=== PATIENT | female | born 1995 | race Caucasian/White ===

== ENCOUNTER 2021-08-29 08:20 | Observation (INO) ==
--- NOTE | 2021-08-29 08:37 | Emergency Department Note ---
Impression & Plan Acute appendicitis, Abdominal pain ED Provider Note NAME: LIZA PERSAUD AGE: 25 SEX: F : 1995 ARRIVES VIA: Walk-In INFORMANT: Patient, ED PROVIDER(S): Osei Richardson MD Chief Complaint: Abdominal pain, nausea vomiting HPI: Patient does present with abdominal pain and associated nausea vomiting. Patient states that she began having epigastric discomfort around 130 this morning. Patient states that this was persisted where the patient cannot sleep very well. The patient described it as sharp and occasionally itchy. The patient states that now she has right-sided abdominal pain primarily in the upp er abdomen. The patient also does have some mild right lower discomfort as well. The patient denies any dysuria, hematuria, vaginal bleeding, hematochezia or issues with defecation. Patient denies any chills. The patient did not take anything for symptoms. Patient states at 630 she had an episode of nonbloody nonbilious emesis. Patient did drink 1 alcoholic beverage last night. The patient is a non-smoker. Patient did not take anything for her symptoms prior to arrival. Patient's pain has been constant. Patient denies any recent trauma to the abdomen. Patient is vaccinated for COVID-19. Patient states she is on progesterone only control and does not get menstrual periods. ROS: See HPI for pertinent positives and negatives. A total of 10 systems were reviewed and otherwise negative. Past medical history: See below Surgical history: See below Social history: See below Physical Exam: GENERAL: NAD, [wearing a mask,] non-toxic. EYE EXAM: Normal conjunctiva. PERRL, no anisocoria and EOM's grossly intact w/o pain. NECK: Supple, no nuchal rigidity, no adenopathy, non-tender. No signs of meningismus. LUNGS: Clear to auscultation. Normal chest wall mechanics. HEART: NSR, no MRG. ABDOMEN: Abdomen soft, right upper quadrant and right-sided abdominal pain, negative obturators and psoas, normo-active bowel sounds, no masses, no rebound or guarding. BACK: No CVA TTP. SKIN: No rashes and no bruising. UPPER EXTREMITIES: Upper extremities are grossly normal. LOWER EXTREMITIES: Grossly normal, no edema. NEURO EXAM: A&O x3, cranial nerves II-XII grossly intact, normal speech, moves all 4 extremities on command w/o issue. Differential diagnoses: Appendicitis, ovarian cyst, ovarian torsion, ectopic , TOA, PID, infections, diverticulitis, UTI, obstruction, mesenteric ischemia, aortic pathology, inflammatory bowel disease, renal colic, PUD, pancreatitis, biliary pathology, hernia, volvulus, constipation, as well as other pathologies. Course: Patient was seen and evaluated the bedside. Full history physical exam was performed. Imaging Studies: See Below [Cardiac monitoring: An order was placed for continuous cardiac monitoring. The monitor shows a rate of 82 with sinus rhythm.] MDM: Patient was seen due to concern for upper abdominal pain. Patient did have calcifications in the right hemipelvis. Blood work shows a white count of 14. CT abdomen pelvis was obtained. This does show acute appendicitis. Upon reassessment the patient feels well. The patient was informed of the findings. I did speak with the on-call general surgeon Dr. Wagner and the patient was pending admission and operative treatment today. Past Med/Surg History Medical History No pertinent past medical history Surgical History [place] teeth removed Family History Denies family history of Ovarian cancer Prostate cancer Myocardial infarction Breast cancer Colorectal cancer Social History Smoking Status: Never smoker Second Hand Exposure: No; Hx Alcohol Use: Yes Hx Substance Use: No Preferred Language: Frisian Communication Ability: Effective marital status: Single current occupational status: employed Feels Safe at Home: Yes Childhood Exposure to Second-Hand Smoke: No caffeine: Yes Physical Activity Frequency: 5-6 Times per Week Seatbelt Use: always Sunscreen Use: Yes Allergies Allergies Allergy/AdvReac Type Severity Reaction Status Date / Time seasonal allergies Allergy Congested, Uncoded 08/29/21 09:25 Itchy eyes, Runny nose Home Meds Home Medications Medication Instructions Recorded Confirmed hydroxyzine HCl 25 mg tablet 50 mg PO HS PRN 07/19/19 08/29/21 escitalopram oxalate 10 mg tablet 10 mg PO QAM 12/09/20 08/29/21 (Lexapro) ascorbic acid (vitamin C) 500 mg 500 mg PO HS 08/29/21 08/29/21 tablet norethindrone (contraceptive) 0.35 0.35 mg PO HS 08/29/21 08/29/21 mg tablet (Melina) Results & Data (ED) Vital Signs Vital Signs - 24 hr 08/29/21 08:26 08/29/21 08:57 08/29/21 08:59 Temperature 36.5 C 37.1 C Temperature Source Temporal Artery Scan Oral Pulse Rate 87 81 Pulse Rate [Finger] 81 Pulse Rhythm Regular Regular Pulse Rhythm [Finger] Regular Pulse Strength Normal Pulse Strength [Finger] Normal Respiratory Rate 20 16 16 Respiratory Effort / Characteristics Non-Labored Spontaneous Non-Labored Spontaneous Respiratory Depth Normal Normal Respiratory Pattern Regular Regular Blood Pressure 137/99 Blood Pressure [Right Arm] 124/71 Blood Pressure Mean 111 Blood Pressure Mean [Right Arm] 88 Blood Pressure Position Sitting Blood Pressure Position [Right Arm] Semi-fowlers Pulse Oximetry 99 99 99 Oxygen Delivery Method Room Air Room Air Room Air Oxygen Flow Rate 0 Sepsis Recent Fever Within 48 Hours No Sepsis New/Unexplained Change in Mental Status N/A Sepsis Action Taken by Nursing No Action Required Home Medications Current Medication List: was personally reviewed by me Laboratory Data Attestation: I reviewed the patient's lab results. Result diagrams: 08/29/21 09:10 08/29/21 09:10 Lab Results 08/29/21 08/29/21 08/29/21 Range/Units 09:05 09:05 09:10 WBC 14.52 H (4.8-10.8) K/uL RBC 4.23 (4.2-5.4) M/uL Hgb 12.8 (12.0-16.0) g/dL Hct 37.5 (37-47) % MCV 88.7 (80-100) fL MCH 30.3 (25-34) pg MCHC 34.1 (32-36) g/dL RDW Std Deviation 40.6 (36.4-46.3) fL RDW Coeff of Mary 12.6 (11.5-14.5) % Plt Count 254 (130-400) K/uL MPV 10.1 (7.4-10.4) fL Immature Gran % (Auto) 0.2 % Neut % (Auto) 88.8 % Lymph % (Auto) 5.8 % [place] % (Auto) 4.9 % Eos % (Auto) 0.1 % Baso % (Auto) 0.2 % Neut # (Auto) 12.90 H (1.4-6.5) K/uL Lymph # (Auto) 0.84 L (1.2-3.4) K/uL [place] # (Auto) 0.71 H (0.11-0.59) K/uL Eos # (Auto) 0.01 (0-0.5) K/uL Baso # (Auto) 0.03 (0-0.2) K/uL Immature Gran # (Auto) 0.03 H (0.00-0.02) K/uL Sodium (136-145) mmol/L Potassium (3.5-5.1) mmol/L Chloride (98-107) mmol/L Carbon Dioxide (21-32) mmol/L Anion Gap (3-11) BUN (7-18) mg/dl Creatinine (0.6-1.2) mg/dl Est Cr Clr Drug Dosing ml/min Est GFR ( Amer) ml/min Est GFR (Non-Af Amer) ml/min BUN/Creatinine Ratio (10-20) Glucose (70-99) mg/dl Calcium (8.5-10.1) mg/dl Total Bilirubin (0.2-1) mg/dl AST (15-37) U/L ALT (12-78) U/L Alkaline Phosphatase (45-117) U/L Total Protein (6.4-8.2) gm/dl Albumin (3.4-5.0) gm/dl Globulin (2.5-4.0) gm/dl Albumin/Globulin Ratio (0.9-2) Lipase (73-393) U/L Urine Color Yellow Urine Appearance Clear (Clear) Urine pH 6.0 (4.5-7.5) Ur Specific Christine 1.025 (1.000-1.030) Urine Protein 1+ H (Negative) Urine Glucose (UA) Negative (Negative) Urine Ketones Trace H (Negative) Urine Blood Negative (Negative) Urine Nitrite Negative (Negative) Urine Bilirubin Negative (Negative) Urine Urobilinogen Negative (Negative) Ur Leukocyte Esterase Negative (Negative) Urine WBC (Auto) 1-5 (0-5) /hpf Urine RBC (Auto) 0-4 (0-4) /hpf U Hyaline Cast (Auto) 5-10 H (0-5) /lpf U Epithel Cells (Auto) >30 H (0-5) /lpf Urine Bacteria (Auto) 1+ H (Negative) Urine Test Negative (Negative) COVID-19 Eval Order 08/29/21 08/29/21 Range/Units 09:10 10:50 WBC (4.8-10.8) K/uL RBC (4.2-5.4) M/uL Hgb (12.0-16.0) g/dL Hct (37-47) % MCV (80-100) fL MCH (25-34) pg MCHC (32-36) g/dL RDW Std Deviation (36.4-46.3) fL RDW Coeff of Mary (11.5-14.5) % Plt Count (130-400) K/uL MPV (7.4-10.4) fL Immature Gran % (Auto) % Neut % (Auto) % Lymph % (Auto) % [place] % (Auto) % Eos % (Auto) % Baso % (Auto) % Neut # (Auto) (1.4-6.5) K/uL Lymph # (Auto) (1.2-3.4) K/uL [place] # (Auto) (0.11-0.59) K/uL Eos # (Auto) (0-0.5) K/uL Baso # (Auto) (0-0.2) K/uL Immature Gran # (Auto) (0.00-0.02) K/uL Sodium 138 (136-145) mmol/L Potassium 4.1 (3.5-5.1) mmol/L Chloride 107 (98-107) mmol/L Carbon Dioxide 28 (21-32) mmol/L Anion Gap 3.0 (3-11) BUN 11 (7-18) mg/dl Creatinine 0.81 (0.6-1.2) mg/dl Est Cr Clr Drug Dosing 93.7 ml/min Est GFR ( Amer) 116.2 ml/min Est GFR (Non-Af Amer) 100.2 ml/min BUN/Creatinine Ratio 13.3 (10-20) Glucose 99 (70-99) mg/dl Calcium 9.5 (8.5-10.1) mg/dl Total Bilirubin 0.6 (0.2-1) mg/dl AST 15 (15-37) U/L ALT 21 (12-78) U/L Alkaline Phosphatase 56 (45-117) U/L Total Protein 7.6 (6.4-8.2) gm/dl Albumin 4.1 (3.4-5.0) gm/dl Globulin 3.5 (2.5-4.0) gm/dl Albumin/Globulin Ratio 1.2 (0.9-2) Lipase 163 (73-393) U/L Urine Color Urine Appearance (Clear) Urine pH (4.5-7.5) Ur Specific [place] (1.000-1.030) Urine Protein (Negative) Urine Glucose (UA) (Negative) Urine Ketones (Negative) Urine Blood (Negative) Urine Nitrite (Negative) Urine Bilirubin (Negative) Urine Urobilinogen (Negative) Ur Leukocyte Esterase (Negative) Urine WBC (Auto) (0-5) /hpf Urine RBC (Auto) (0-4) /hpf U Hyaline Cast (Auto) (0-5) /lpf U Epithel Cells (Auto) (0-5) /lpf Urine Bacteria (Auto) (Negative) Urine Test (Negative) COVID-19 Eval Order Covid19 [facility] Administered Medications Discontinued Medications Sodium Chloride (Nss) 500 mls @ 999 mls/hr IV .Q31M STA Stop: 08/29/21 09:22 Last Admin: 08/29/21 09:21 Dose: 999 mls/hr Documented by: [id number] Famotidine (Pepcid 20mg Iv Push) 20 mg in 5 mls @ 2.5 mls/min IV NOW STA Stop: 08/29/21 08:54 Last Admin: 08/29/21 09:25 Dose: 2.5 mls/min Documented by: [id number] Cefoxitin Sodium (Mefoxin) 2,000 mg in 60 mls @ 100 mls/hr IV NOW STA Stop: 08/29/21 11:08 Last Admin: 08/29/21 10:50 Dose: 100 mls/hr Documented by: [id number] Ioversol (Optiray 320 100ml) 94 ml IV ONCE ONE Stop: 08/29/21 10:14 Last Admin: 08/29/21 10:13 Dose: 94 ml Documented by: [id number] Ondansetron HCl (Ondansetron Inj 2 Mg/Ml 2 Ml Vial) 4 mg IV NOW STA Stop: 08/29/21 08:53 Last Admin: 08/29/21 09:23 Dose: 4 mg Documented by: [id number] Imaging Data Radiologist's Impression: KUB X-Ray 08/29/21 08:52 KUB CLINICAL HISTORY: Right-sided abdominal pain. COMPARISON STUDY: None. FINDINGS: The bowel gas pattern is normal. A 3 mm left pelvic calcification likely reflects a phlebolith. Note is made of clustered calcific densities within the right hemipelvis. These measure 5.2 cm in extent. Visualized skeletal structures are unremarkable. IMPRESSION: 1. No evidence for a bowel obstruction. 2. Clustered calcific densities within the right hemipelvis which measure 5.2 cm in extent. Radiographic appearance is nonspecific and these could be related to the right ovary or less likely the uterus. CT is recommended for further evaluation. ACT 112: Negative or not required by law. Electronically signed by: Gary Arndt M.D. 08/29/2021 9:07 AM Abdomen/Pelvis CT 08/29/21 09:[address] WITH IV CONTRAST CT DOSE: 286.60 mGy.cm HISTORY: Right-sided abdominal pain. Vomiting. TECHNIQUE: Multiaxial CT images of the abdomen and pelvis were performed following the use of intravenous contrast. A dose lowering technique was utilized adhering to the principles of ALARA. COMPARISON STUDY: None. FINDINGS: The lung bases are clear. No pneumoperitoneum. No pneumatosis. No fractures within the visualized osseous structures. The liver, gallbladder, spleen, adrenal glands, pancreas, and kidneys are unremarkable. No retroperitoneal lymphadenopathy. Normal caliber abdominal aorta. No pelvic lymphadenopathy. The uterus and ovaries are unremarkable. Normal bladder. No evidence for small bowel obstruction. Densities within the ascending colon may be due to old barium contrast. There is a thick-walled and mildly distended appendix with mild periappendiceal fat stranding. This demonstrates a retrocecal location. Findings are consistent with acute appendicitis. The appendix measures up to [address] IMPRESSION: Acute appendicitis. ACT 112: Negative or not required by law. Electronically signed by: Fortunato Silva M.D. 08/29/2021 10:27 AM Discharge Plan Visit Data Chief Complaint: GI Assessment Stated Complaint: LRQ ABD PAIN,VOMITING,NAUSEA ED Provider: Osei Richardson Discharge Problem: Acute appendicitis, Abdominal pain Patient Disposition: Admitted As Inpatient Forms Stand Alone Forms: [facility] Prescriptions Prescriptions: No Action escitalopram oxalate [Lexapro] 10 mg tablet 10 mg PO QAM RF: 0 hydroxyzine HCl 25 mg tablet 50 mg PO HS PRN (Reason: Sleep) RF: 0 norethindrone (contraceptive) [Melina] 0.35 mg tablet 0.35 mg PO HS RF: 0 ascorbic acid (vitamin C) 500 mg Tablet 500 mg PO HS RF: 0 Referrals Referrals: Александр Newman MD [Primary Care Provider] -
[2021-08-29] MEDS ORDERED: SODIUM CHLORIDE 0.9% 500 ML IV STA (08:52)
[2021-08-29] MEDS ORDERED: ONDANSETRON INJ 2 MG/ML 2 ML VIAL IV STA (08:52)
[2021-08-29] MEDS ORDERED: FAMOTIDINE 20MG IV PUSH 20 MG/5 ML SYR IV STA (08:53)
--- NOTE | 2021-08-29 09:09 | XRay Report ---
KUB CLINICAL HISTORY: Right-sided abdominal pain. COMPARISON STUDY: None. FINDINGS: The bowel gas pattern is normal. A 3 mm left pelvic calcification likely reflects a phlebol ith. Note is made of clustered calcific densities within the right hemipelvis. These measure 5.2 cm i n extent. Visualized skeletal structures are unremarkable. IMPRESSION: 1. No evidence for a bowel obstruction. 2. Clustered calcific densities within the right hemipelvis which measure 5.2 cm in extent. Radiograp hic appearance is nonspecific and these could be related to the right ovary or less likely the uterus . CT is recommended for further evaluation. ACT 112: Negative or not required by law. Electronically signed by: Gary Arndt M.D. 08/29/2021 9:07 AM
[2021-08-29 09:26] LABS: Basophils # (auto) 0.03 K/uL (0-0.2); Basophils % (auto) 0.2 %; Eosinophils # (auto) 0.01 K/uL (0-0.5); Eosinophils % (auto) 0.1 %; Hematocrit (blood only) 37.5 % (37-47); Hemoglobin 12.8 g/dL (12.0-16.0); Immature Granulocytes # (auto) 0.03 K/uL (0.00-0.02); Immature Granulocytes % (auto) 0.2 %; Lymphocytes # (auto) 0.84 K/uL (1.2-3.4); Lymphocytes % (auto) 5.8 %; Mean Corpuscular Hemoglobin 30.3 pg (25-34); Mean Corpuscular Hgb Conc 34.1 g/dL (32-36); Mean Corpuscular Volume 88.7 fL (80-100); Mean Platelet Volume 10.1 fL (7.4-10.4); Monocytes # (auto) 0.71 K/uL (0.11-0.59); Monocytes % (auto) 4.9 %; Neutrophils % (auto) 88.8 %; Platelet Count 254 K/uL (130-400); RDW Coefficient of Variation 12.6 % (11.5-14.5); RDW Standard Deviation 40.6 fL (36.4-46.3); Red Blood Count 4.23 M/uL (4.2-5.4); White Blood Count 14.52 K/uL (4.8-10.8)
[2021-08-29 09:39] LABS: Appearance Urine Clear (Clear); Bacteria Urine Automated 1+ (Negative); Bilirubin Urine Negative (Negative); Blood Urine Negative (Negative); Color Urine Yellow; Epithelial Cell Urine Auto >30 /lpf (0-5); Glucose Urine UA Negative (Negative); Ketones Urine Trace (Negative); Leukocyte Esterase Urine Negative (Negative); Nitrite Urine Negative (Negative); Protein Urine 1+ (Negative); RBC Urine Automated 0-4 /hpf (0-4); Specific Gravity Urine 1.025 (1.000-1.030); Urobilinogen Urine Negative (Negative)
[2021-08-29 09:50] LABS: Pregnancy Test, Urine Negative (Negative)
[2021-08-29 09:53] LABS: Albumin Level 4.1 gm/dl (3.4-5.0); BUN Creatinine Ratio 13.3 (10-20); Calcium 9.5 mg/dl (8.5-10.1); Creatinine Clr Calc Pharmacy 93.7 ml/min; Est GFR (African American) 116.2 ml/min; Est GFR (Non-African American) 100.2 ml/min; Potassium 4.1 mmol/L (3.5-5.1)
[2021-08-29 09:55] LABS: Albumin Globulin Ratio 1.2 (0.9-2); Bilirubin,Total 0.6 mg/dl (0.2-1); Globulin 3.5 gm/dl (2.5-4.0); Total Protein 7.6 gm/dl (6.4-8.2)
[2021-08-29] MEDS ORDERED: OPTIRAY 320 100ml IV ONE (10:13)
--- NOTE | 2021-08-29 10:29 | CT Scan Report ---
ABDOMEN AND PELVIS CT WITH IV CONTRAST CT DOSE: 286.60 mGy.cm HISTORY: Right-sided abdominal pain. Vomiting. TECHNIQUE: Multiaxial CT images of the abdomen and pelvis were performed following the use of intrave nous contrast. A dose lowering technique was utilized adhering to the principles of ALARA. COMPARISON STUDY: None. FINDINGS: The lung bases are clear. No pneumoperitoneum. No pneumatosis. No fractures within the visu alized osseous structures. The liver, gallbladder, spleen, adrenal glands, pancreas, and kidneys are unremarkable. No retroperitoneal lymphadenopathy. Normal caliber abdominal aorta. No pelvic lymphaden opathy. The uterus and ovaries are unremarkable. Normal bladder. No evidence for small bowel obstruct ion. Densities within the ascending colon may be due to old barium contrast. There is a thick-walled and mildly distended appendix with mild periappendiceal fat stranding. This demonstrates a retrocecal location. Findings are consistent with acute appendicitis. The appendix measures up to [address] IMPRESSION: Acute appendicitis. ACT 112: Negative or not required by law. Electronically signed by: Fortunato Silva M.D. 08/29/2021 10:27 AM
[2021-08-29] MEDS ORDERED: cefOXitin 2,000 MG/60 ML BAG IV STA (10:33)
--- NOTE | 2021-08-29 13:12 | History & Physical Report ---
Date of Service August 29, 2021 Assessment & Plan (1) Acute appendicitis: Plan: 25-year-old female with acute uncomplicated appendicitis Plan for laparoscopic appendectomy Risk of the procedure were discussed to include but not limited to bleeding, infection, normal appendix, damage surrounding structures, conversion open, need for future more extensive surgery, and the risk of anesthesia Preop antibiotics Admit observation postop as she lives alone History of Present Illness Chief Complaint: Abdominal pain Primary Care Provider: Александр Newman MD 25-year-old female presents to the emergency department with abdominal pain that woke her from sleep early this morning. Initially periumbilical, now migrated to the right lower quadrant. Had some emesis. No similar episodes in the past. Otherwise healthy, not on any blood thinners, no prior abdominal surgery. 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 Allergies Allergy/AdvReac Type Severity Reaction Status Date / Time seasonal allergies Allergy Congested, Uncoded 08/29/21 09:25 Itchy eyes, Runny nose Home Medications Medication Instructions Recorded Confirmed Type hydroxyzine HCl 25 mg tablet 50 mg PO HS PRN 07/19/19 08/29/21 History escitalopram oxalate 10 mg tablet 10 mg PO QAM 12/09/20 08/29/21 History (Lexapro) ascorbic acid (vitamin C) 500 mg 500 mg PO HS 08/29/21 08/29/21 History tablet norethindrone (contraceptive) 0.35 0.35 mg PO HS 08/29/21 08/29/21 History mg tablet (Melina) Past Med/Surg History Medical History No pertinent past medical history Surgical History [place] teeth removed Family History Denies family history of Ovarian cancer Prostate cancer Myocardial infarction Breast cancer Colorectal cancer Social History Smoking Status: Never smoker Second Hand Exposure: No; Hx Alcohol Use: Yes Hx Substance Use: No Preferred Language: Argentine Communication Ability: Effective marital status: Single current occupational status: employed Feels Safe at Home: Yes Childhood Exposure to Second-Hand Smoke: No caffeine: Yes Physical Activity Frequency: 5-6 Times per Week Seatbelt Use: always Sunscreen Use: Yes Review of Systems Review of Systems: All systems reviewed & are unremarkable except as noted in HPI & below Physical Exam Constitutional: WD/WN, vitals as above Respiratory: normal respiratory effort, lungs clear to auscultation Cardiovascular: RRR, no murmur, no edema Gastrointestinal (Abdomen): Percussion/Palpation: + abdomen tender (Tender palpation right lower quadrant with localized guarding), + guarding and abdomen soft; abdomen not rigid, no hepatosplenomegaly and no hernia Results & Data Results & Data ([facility]) Vital Signs (Past 12 Hours) Vital Signs Temp Pulse Pulse Resp BP BP Pulse Ox 08/29/21 12:13 70 16 115/67 99 08/29/21 08:59 81 16 99 08/29/21 08:57 37.1 C 81 16 124/71 99 08/29/21 08:26 36.5 C 87 20 137/99 99 Laboratory Results Laboratory Results - last 24 hr 08/29/21 08/29/21 08/29/21 09:05 09:05 09:10 WBC 14.52 H RBC 4.23 Hgb 12.8 Hct 37.5 MCV 88.7 MCH 30.3 MCHC 34.1 RDW Std Deviation 40.6 RDW Coeff of Mary 12.6 Plt Count 254 MPV 10.1 Immature Gran % (Auto) 0.2 Neut % (Auto) 88.8 Lymph % (Auto) 5.8 [place] % (Auto) 4.9 Eos % (Auto) 0.1 Baso % (Auto) 0.2 Neut # (Auto) 12.90 H Lymph # (Auto) 0.84 L [place] # (Auto) 0.71 H Eos # (Auto) 0.01 Baso # (Auto) 0.03 Immature Gran # (Auto) 0.03 H Sodium Potassium Chloride Carbon Dioxide Anion Gap BUN Creatinine Est Cr Clr Drug Dosing Est GFR ( Amer) Est GFR (Non-Af Amer) BUN/Creatinine Ratio Glucose Calcium Total Bilirubin AST ALT Alkaline Phosphatase Total Protein Albumin Globulin Albumin/Globulin Ratio Lipase Urine Color Yellow Urine Appearance Clear Urine pH 6.0 Ur Specific [place] 1.025 Urine Protein 1+ H Urine Glucose (UA) Negative Urine Ketones Trace H Urine Blood Negative Urine Nitrite Negative Urine Bilirubin Negative Urine Urobilinogen Negative Ur Leukocyte Esterase Negative Urine WBC (Auto) 1-5 Urine RBC (Auto) 0-4 U Hyaline Cast (Auto) 5-10 H U Epithel Cells (Auto) >30 H Urine Bacteria (Auto) 1+ H Urine Test Negative COVID-19 Eval Order SARS-CoV-2 RNA ([place]) 08/29/21 08/29/21 08/29/21 09:10 10:50 10:50 WBC RBC Hgb Hct MCV MCH MCHC RDW Std Deviation RDW Coeff of Mary Plt Count MPV Immature Gran % (Auto) Neut % (Auto) Lymph % (Auto) [place] % (Auto) Eos % (Auto) Baso % (Auto) Neut # (Auto) Lymph # (Auto) [place] # (Auto) Eos # (Auto) Baso # (Auto) Immature Gran # (Auto) Sodium 138 Potassium 4.1 Chloride 107 Carbon Dioxide 28 Anion Gap 3.0 BUN 11 Creatinine 0.81 Est Cr Clr Drug Dosing 93.7 Est GFR ( Amer) 116.2 Est GFR (Non-Af Amer) 100.2 BUN/Creatinine Ratio 13.3 Glucose 99 Calcium 9.5 Total Bilirubin 0.6 AST 15 ALT 21 Alkaline Phosphatase 56 Total Protein 7.6 Albumin 4.1 Globulin 3.5 Albumin/Globulin Ratio 1.2 Lipase 163 Urine Color Urine Appearance Urine pH Ur Specific [place] Urine Protein Urine Glucose (UA) Urine Ketones Urine Blood Urine Nitrite Urine Bilirubin Urine Urobilinogen Ur Leukocyte Esterase Urine WBC (Auto) Urine RBC (Auto) U Hyaline Cast (Auto) U Epithel Cells (Auto) Urine Bacteria (Auto) Urine Test COVID-19 Eval Order Covid19 [facility] SARS-CoV-2 RNA ([place]) Pending Diagnostic Findings ABDOMEN AND PELVIS CT WITH IV CONTRAST CT DOSE: 286.60 mGy.cm HISTORY: Right-sided abdominal pain. Vomiting. TECHNIQUE: Multiaxial CT images of the abdomen and pelvis were performed following the use of intravenous contrast. A dose lowering technique was utilized adhering to the principles of ALARA. COMPARISON STUDY: None. FINDINGS: The lung bases are clear. No pneumoperitoneum. No pneumatosis. No fractures within the visualized osseous structures. The liver, gallbladder, spleen, adrenal glands, pancreas, and kidneys are unremarkable. No retroperitoneal lymphadenopathy. Normal caliber abdominal aorta. No pelvic lymphadenopathy. The uterus and ovaries are unremarkable. Normal bladder. No evidence for small bowel obstruction. Densities within the ascending colon may be due to old barium contrast. There is a thick-walled and mildly distended appendix with mild periappendiceal fat stranding. This demonstrates a retrocecal location. Findings are consistent with acute appendicitis. The appendix measures up to 8 mm in diameter. IMPRESSION: Acute appendicitis. PG Care Time/CCT Total # of Minutes Spent Total Time Spent with Patient: Total time spent is greater than 50% in coordination of care (as documented) at patient's floor/unit and/or counseling patient: Coding Level of Care Code INT OBSERVATION CARE 50M LVL 2 Diagnoses Acute appendicitis K35.30 Acute appendicitis type: with localized peritonitis Appendicitis abscess presence: without abscess Appendicitis gangrene presence: without gangrene Appendicitis perforation presence: without perforation (1) Acute appendicitis Acute appendicitis type: with localized peritonitis Appendicitis abscess presence: without abscess Appendicitis gangrene presence: without gangrene Appendicitis perforation presence: without perforation Qualified Code(s): K35.30 - Acute appendicitis with localized peritonitis, without perforation or gangrene
--- NOTE | 2021-08-29 13:51 | Anesthesiology Consultation ---
Date of Service August 29, 2021 Assessment & Plan (1) Encounter for pre-operative examination: Chart Review Chart Review: Acceptable Risk for Surgery and Patient NOT seen in Pre Admission Testing Consults Requested none History Surgery Operation Date: 08/29/21 12:00 Proposed Procedures p Laparoscopic Appendectomy - Chuy Wagner DO, FACS Height/Weight Height: 5 ft 8 in Weight: 56.4 kg Allergies Allergy/AdvReac Type Severity Reaction Status Date / Time seasonal allergies Allergy Congested, Uncoded 08/29/21 09:25 Itchy eyes, Runny nose Medications Home Medications Medication Instructions Recorded Confirmed Last Taken hydroxyzine HCl 25 mg tablet 50 mg PO HS PRN 07/19/19 08/29/21 08/28/21 escitalopram oxalate 10 mg tablet 10 mg PO QAM 12/09/20 08/29/21 08/29/21 (Lexapro) ascorbic acid (vitamin C) 500 mg 500 mg PO HS 08/29/21 08/29/21 08/28/21 tablet norethindrone (contraceptive) 0.35 0.35 mg PO HS 08/29/21 08/29/21 08/28/21 mg tablet (Melina) Past Medical History Medical History No pertinent past medical history Past Family History Family History Denies family history of Ovarian cancer Prostate cancer Myocardial infarction Breast cancer Colorectal cancer Past Surgical History Surgical History [place] teeth removed Social History Smoking Status: Never smoker Hx Alcohol Use: Yes Hx Substance Use: No Physical Exam Vital Signs Last Vital Signs Temp 37.1 C 08/29/21 08:57 Pulse 70 08/29/21 12:13 Resp 16 08/29/21 12:13 BP 115/67 08/29/21 12:13 Pulse Ox 99 08/29/21 12:13 Testing Laboratory Results 08/29/21 09:10 08/29/21 09:10 Urine Color Yellow 08/29/21 09:05 Urine Appearance Clear (Clear) 08/29/21 09:05 Urine pH 6.0 (4.5-7.5) 08/29/21 09:05 Ur Specific [place] 1.025 (1.000-1.030) 08/29/21 09:05 Urine Protein 1+ (Negative) H 08/29/21 09:05 Urine Glucose (UA) Negative (Negative) 08/29/21 09:05 Urine Ketones Trace (Negative) H 08/29/21 09:05 Urine Nitrite Negative (Negative) 08/29/21 09:05 Ur Leukocyte Esterase Negative (Negative) 08/29/21 09:05 Urine WBC (Auto) 1-5 /hpf (0-5) 08/29/21 09:05 Urine RBC (Auto) 0-4 /hpf (0-4) 08/29/21 09:05 U Hyaline Cast (Auto) 5-10 /lpf (0-5) H 08/29/21 09:05 U Epithel Cells (Auto) >30 /lpf (0-5) H 08/29/21 09:05 Urine Bacteria (Auto) 1+ (Negative) H 08/29/21 09:05 Urine Test Negative (Negative) 08/29/21 09:05 08/29/21 09:05 Urine Test Negative
[2021-08-29] MEDS ORDERED: BUPIVACAINE 0.5 % 5 MG/1 ML MPF 30ML VIAL ONE (13:59)
[2021-08-29] MEDS ORDERED: fentaNYL citrate 100 MCG/2 ML VIAL ONE (15:05)
[2021-08-29] MEDS ORDERED: MIDAZOLAM HCL 1 MG/ML 2ML VIAL ONE (15:06)
[2021-08-29] MEDS ORDERED: SCOPOLAMINE 1 MG TDSY TD ONE (15:46)
[2021-08-29] MEDS ORDERED: DEXAMETHASONE SOD INJ 4 MG/ML VIAL ONE (16:32)
[2021-08-29] MEDS ORDERED: SUCCINYLCHOLINE CHLORIDE 20 MG/ML 10 ML VIAL IV ONE (16:32)
[2021-08-29] MEDS ORDERED: LIDOCAINE 2% 2 ML VIAL/AMP(20MG/ML) INFIL ONE (16:32)
[2021-08-29] MEDS ORDERED: ROCURONIUM BROMIDE 10 MG/ML 5 ML VIAL IV ONE (16:32)
[2021-08-29] MEDS ORDERED: PROPOFOL IV EMULSION 10 MG/ML 20 ML VIAL IV ONE (16:32)
[2021-08-29] MEDS ORDERED: ONDANSETRON INJ 2 MG/ML 2 ML VIAL ONE (16:32)
[2021-08-29] MEDS ORDERED: fentaNYL citrate 100 MCG/2 ML VIAL IV PRN (16:38)
[2021-08-29] MEDS ORDERED: ePHEDrine sulfate 50 MG/ML AMP IV PRN (16:38)
[2021-08-29] MEDS ORDERED: ONDANSETRON INJ 2 MG/ML 2 ML VIAL IV PRN ×2 (16:38→18:42)
[2021-08-29] MEDS ORDERED: ATROPINE SULFATE 0.1 MG/ML 10ML SYR IV PRN (16:38)
[2021-08-29] MEDS ORDERED: PROMETHAZINE HCL 12.5 MG in SODIUM CHLORIDE 0.9% 50 ML IV PRN (16:38)
[2021-08-29] MEDS ORDERED: KETOROLAC 30 MG/ML VIAL ONE (16:39)
[2021-08-29] MEDS ORDERED: NEOSTIGMINE METHYLSULFATE 1 MG/ML 10ML VIAL ONE (16:39)
[2021-08-29] MEDS ORDERED: GLYCOPYRROLATE 0.2 MG/ML VIAL ONE (16:39)
--- NOTE | 2021-08-29 16:58 | Operative Report ---
PG Post Operative Report Pre & Post Diagnosis Operation Date: 08/29/21 12:00 Preop diagnosis: Acute appendicitis Postop diagnosis: Acute appendicitis I identified the patient and participated in the time-out.: Yes Procedure Operation Date: 08/29/21 12:00 Procedure performed: Laparoscopic appendectomy Surgeon Chuy Wagner DO, FACS [employer]ary Cutter Operator Jose Franciscocatracho Hunt, 2 Estimated Blood Loss 5 Findings Consistent with Post-Op Diagnosis Acute, nonperforated appendicitis Specimens Appendix Anesthesia Type General Complications none Disposition Accompanied Patient To Recovery: No Disposition: Recovery Room Indications 25-year-old female presented with signs and symptoms of acute appendicitis, confirmed by CT scan. Plan for laparoscopic appendectomy. The risks of the procedure were discussed, all questions were answered, and the patient agreed to proceed with surgery as planned. Description of Procedure The patient was properly identified, consented, and taken to the operating room where she was placed in the supine position. General endotracheal anesthesia was induced. SCDs and a safety belt were placed. Preoperative antibiotics were administered. A Reaves catheter was not placed. The patient's abdomen was prepped and draped in the standard sterile fashion. Surgical timeout was performed and all parties were in agreement that this was the correct patient and procedure to be performed and we continued as planned. A curvilinear infraumbilical incision was made with electrocautery and deepened down to the fascia with blunt dissection. The base of the umbilicus was grasped with a Hemant and elevated towards the ceiling. An incision was made in the midline fascia with a knife and entry into the peritoneum was confirmed. Stay suture of 0 Vicryl was placed and a Mccracken trocar was inserted. The abdomen was insufflated with carbon dioxide which the patient tolerated without incident. The laparoscope was inserted and no damage from initial trocar placement was noted, no gross abnormalities were noted within the 4 quadrants the abdomen. 3 mm ports were then placed in the left lower quadrant with care not to damage the epigastric vessels, and in the suprapubic midline with care not to damage the bladder. The patient was placed in Trendelenburg position and rotated towards the left. The small bowel was swept away from the right lower quadrant. The cecum was grasped with an atraumatic grasper exposing the appendix. The appendix was mildly inflamed and there was no evidence of perforation. There was minimal reactive fluid in the pelvis. A window was created between the base of the appendix and the mesoappendix. A peña loaded endoscopic stapler was then used to divide the appendix at its base. A peña load was then used to divide the mesoappendix. Hemostasis was good. The appendix was placed in an Endo Catch bag and removed through the umbilical port site. The right lower quadrant and pelvis was irrigated and hemostasis was found to be good. 3 mm trochars were removed under direct visualization and the abdomen was allowed to collapse. The umbilical port site fascia was closed with 0 Vicryl suture. The wound was irrigated, and the skin was closed with 4-0 Monocryl subcuticular sutures. Dermabond was placed over the wounds. The patient was extubated in the operating room and taken to the PACU where she recovered without apparent incident. All sponge, instrument and needle counts were correct at the conclusion of the procedure. The patient tolerated the procedure well. I attest to the content of the Intraoperative Record and any orders documented therein. Any exceptions are noted below.
[2021-08-29] MEDS ORDERED: MoRPHine SULFATE 4 MG/ML 1 ML CARP\\VIAL IV PRN (18:42)
[2021-08-29] MEDS ORDERED: diphenhydrAMINE 50 MG/ML VIAL IV PRN (18:42)
[2021-08-29] MEDS ORDERED: hydrOXYzine HCl 25 MG TAB PO PRN (18:42)
[2021-08-29] MEDS ORDERED: MoRPHine SULFATE 2 MG/ML CARP IV PRN (18:42)
[2021-08-29] MEDS ORDERED: oxyCODONE/ACETAMINOPHEN 5mg/325mg TAB PO PRN ×2 (18:42)
[2021-08-29] MEDS: LACTATED RINGER'S 1,000 ML IV SCH (19:07)
--- NOTE | 2021-08-29 19:08 | Anesthesiology Progress Note ---
Date of Service August 29, 2021 Anesthesia Post Procedure Vital Signs Vital Signs: Temp Pulse Pulse Pulse Resp BP BP 08/29/21 18:45 36.7 C 83 16 111/71 08/29/21 17:55 37.5 C 69 12 105/95 08/29/21 17:45 37.5 C 70 12 109/70 08/29/21 17:35 67 15 121/62 08/29/21 17:25 64 13 112/75 08/29/21 17:15 70 10 L 114/79 08/29/21 17:09 36.5 C 85 16 108/66 08/29/21 14:35 72 16 118/71 08/29/21 14:26 76 16 118/71 08/29/21 12:13 70 16 115/67 08/29/21 08:59 81 16 08/29/21 08:57 37.1 C 81 16 124/71 08/29/21 08:26 36.5 C 87 20 137/99 Pulse Ox 08/29/21 18:45 96 08/29/21 17:55 95 08/29/21 17:45 97 08/29/21 17:35 100 08/29/21 17:25 100 08/29/21 17:15 100 08/29/21 17:09 100 08/29/21 14:35 100 08/29/21 14:26 99 08/29/21 12:13 99 08/29/21 08:59 99 08/29/21 08:57 99 08/29/21 08:26 99 Pain Intensity Right Lower Abdomen: Pain Intensity: 2 Transfer of Care Handoff Completed per policy Notes Mental Status: alert / awake / arousable and participated in evaluation Patient Amnestic to Procedure: Yes Nausea / Vomiting: adequately controlled Pain: adequately controlled Airway Patency, RR, SpO2: stable & adequate BP & HR: stable & adequate Hydration State: stable & adequate Anesthetic Complications: no major complications apparent and Pt Satisfied with anesthetic care
[2021-08-29] MEDS: KETOROLAC TROMETHAMINE 15 MG/ML VIAL IV SCH (19:39)
[2021-08-30] MEDS: KETOROLAC TROMETHAMINE 15 MG/ML VIAL IV SCH ×2 (02:16→06:09)
[2021-08-30] MEDS: LACTATED RINGER'S 1,000 ML IV SCH (02:19)
--- NOTE | 2021-08-30 05:51 | Surgery Progress Note ---
Date of Service August 30, 2021 Assessment & Plan (1) Acute appendicitis: Plan: Postop day #1 laparoscopic appendectomy Continue analgesics Continue antiemetics We will advance diet and if tolerated will plan on discharge later today Admission and Anticipated Discharge Date Admission Date: August 29, 2021 Supervising Physician Co-Signing Physician Notes Patient seen and examined, agree with above. POD #1 laparoscopic appendectomy, doing well. On exam afebrile stable vitals, abdomen soft, probably tender to palpation, incisions without infection. Plan to discharge to home later this morning if tolerates breakfast. Wound care instructions, activity restrictions, and return precautions given. Follow-up in 2 weeks. Subjective Patient is resting comfortably in bed. She denies any nausea or vomiting. She notes that she has tolerated liquids since her surgery. Physical Exam Gastrointestinal (Abdomen): Abdomen is soft and nondistended. Incisions are clean, dry, intact. Appropriate incisional tenderness is noted. . Results & Data ([facility]) Vital Signs (Past 12 Hours) Vital Signs Temp Pulse Pulse Resp BP Pulse Ox 08/30/21 03:16 36.9 C 71 16 103/63 97 08/29/21 22:47 37.2 C 74 16 106/64 96 08/29/21 21:13 37.3 C 67 14 115/71 98 08/29/21 20:12 37.1 C 67 16 109/66 97 08/29/21 19:12 36.9 C 68 14 107/72 96 08/29/21 18:45 36.7 C 83 16 111/71 96 08/29/21 17:55 37.5 C 69 12 105/95 95 PG Care Time/CCT Total # of Minutes Spent Total Time Spent with Patient: Total time spent is greater than 50% in coord ination of care (as documented) at patient's floor/unit and/or counseling patient: Coding Level of Care Code None Diagnoses Acute appendicitis K35.30 Acute appendicitis type: with localized peritonitis Appendicitis abscess presence: without abscess Appendicitis gangrene presence: without gangrene Appendicitis perforation presence: without perforation (1) Acute appendicitis Acute appendicitis type: with localized peritonitis Appendicitis abscess presence: without abscess Appendicitis gangrene presence: without gangrene Appendicitis perforation presence: without perforation Qualified Code(s): K35.30 - Acute appendicitis with localized peritonitis, without perforation or gangrene
[2021-08-30] MEDS ORDERED: ESCITALOPRAM OXALATE 10 MG TAB PO SCH (09:00)
--- NOTE | 2021-08-30 19:57 | Discharge Summary ---
Date of Service August 30, 2021 Admission HPI Per Admitting Provider 25-year-old female presents to the emergency department with abdominal pain that woke her from sleep early this morning. Initially periumbilical, now migrated to the right lower quadrant. Had some emesis. No similar episodes in the past. Otherwise healthy, not on any blood thinners, no prior abdominal surgery. 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 Discharge Data Consultations 08/29/21 10:44 ED Decision to Admit Stat Procedures Performed Operation Date: 08/29/21 12:00 Actual Procedures p Laparoscopic Appendectomy - Chuy Wagner DO, FACS Hospital Course (1) Acute appendicitis: Patient presented [facility] emergency department secondary abdominal pain. Her clinical presentation, labs, and imaging were consistent with acute appendicitis. Patient was therefore taken to the operating room after appropriate antibiotics were administered on date of admission and underwent a laparoscopic appendectomy. Patient was kept overnight in the hospital in observation status. On postop day 1 her diet was advanced as tolerated and she was deemed stable for discharge home on this date after an uncomplicated postoperative course. She was instructed in appropriate wound care, diet, and activity. She was told to call Dr. Wagner office for 1 to 2- week follow-up appointment. Coding Level of Care Code None Diagnoses Acute appendicitis K35.30 Acute appendicitis type: with localized peritonitis Appendicitis abscess presence: without abscess Appendicitis gangrene presence: without gangrene Appendicitis perforation presence: without perforation
== END 2021-08-30 10:53 | disposition home or self-care (01) ==
LOC: ED 08:20 → OR 14:35 → 3N 14:35